=== PATIENT | male | born 1955 | race Caucasian/White ===

== ENCOUNTER 2017-12-12 14:35 | Emergency (ER) | payer OTHER, SELFPAY ==
[2017-12-12] VITALS (8 sets, daily range): BP systolic 151–165; BP diastolic 63–90; PULSE 60–70; RESP 11–20; TEMP 36.8; O2SAT 99–100; BMI 22.1
--- NOTE | 2017-12-12 14:51 | DI.RAD.S_ITS ---
PROCEDURE: XR CHEST 1V INDICATIONS: chest pain TECHNIQUE: One view of the chest was acquired. COMPARISON: [facility], CHEST 1 VIEW, 08/14/2016, 13:27. [facility], CHEST 1 VIEW, 11/13/2014, 15:13. FINDINGS: Surgical changes and devices: Sternotomy with mediastinal postoperative changes. Lungs and pleura: No pleural effusions or pneumothorax. Lungs are clear. Mediastinum: Mediastinal contours appear normal. Heart size is normal. Bones and chest wall: No suspicious bony lesions. Overlying soft tissues appear unremarkable. IMPRESSION: No radiographic evidence of acute cardiopulmonary pathology. Dictated by: Josep Diaz M.D. on 12/12/2017 at 15:23 Approved by: Josep Diaz M.D. on 12/12/2017 at 15:24
--- NOTE | 2017-12-12 14:59 | ED.CHESTPAIN ---
HPI - Chest Pain General Chief Complaint: Chest Pain Stated Complaint: CHEST PAIN/LOW BP 81/37 Time Seen by Provider: 12/12/17 14:38 Source: patient and family Mode of arrival: ambulatory Limitations: no limitations History of Present Illness HPI narrative: Patient presents to the emergency department today with a chief complaint of left-sided chest pressure that started while working in the [place]. It was about 30 min prior to his arrival in radiated to his right chest. He admits to associated symptoms such as dizziness, weakness and lightheadedness as well as nausea and shortness of breath. He had already taken a beta-madhuri and aspirin today and during this episode took nitroglycerin and then noted low blood pressures. By his arrival he is pain free. He had been complaining of worsening exercise fatigue over the past few weeks to months and had an outpatient stress test and echocardiogram which were concerning and patient is scheduled for an outpatient heart catheterization at [facility] on Thursday. MD complaint: chest pain Onset (ago): minute(s) Duration: constant Onset: during exertion Pain location: left chest Severity: mild Severity scale (1-10): 5 Quality: aching and heaviness Pain radiation: RUE Relieving factors: nitroglycerin and rest Exacerbating factors: exertion Associated symptoms: nausea, diaphoresis and dyspnea Treatments prior to arrival chest pain: aspirin and nitroglycerin Related Data Home Medications Medication Instructions Recorded Confirmed insulin lispro [Humalog U-100 1 unit CONTINUOUS IV INFUSION CONT 12/12/17 12/12/17 Insulin] levothyroxine 137 mcg PO DAILY 12/12/17 12/12/17 lisinopril 5 mg PO BID 12/12/17 12/12/17 magnesium chloride 64 mg PO QDAY 12/12/17 12/12/17 mycophenolate sodium 180 mg PO BID 12/12/17 12/12/17 nitroglycerin [Nitrostat] 0.4 mg SUBLINGUAL PRN PRN 12/12/17 12/12/17 prednisone 5 mg PO DAILY 12/12/17 12/12/17 rosuvastatin 5 mg PO DAILY 12/12/17 12/12/17 tacrolimus 2 mg PO Q12H 12/12/17 12/12/17 Allergies Allergy/AdvReac Type Severity Reaction Status Date / Time Rhvovrt-Ppm-Gyj Reductase Allergy Intermediate Verified 12/12/17 14:42 Inhibitor [ADHTJDO-BNP-ITV REDUCTASE INHIBITOR] Review of Systems Review of Systems All systems reviewed & are unremarkable except as noted in HPI and below Constitutional Denies chills, Denies fatigue, Denies fever(s), Denies lethargy and Denies weakness Eyes Denies change in vision, Denies eye discharge, Denies irritation and Denies loss of vision ENT Ears, Nose, Mouth, and Throat: Denies change in voice, Denies neck pain and Denies sore throat Cardiovascular Reports chest pain, Reports chest pain with activity, Reports diaphoresis, Reports lightheadedness and Reports dyspnea Respiratory Reports dyspnea Gastrointestinal Gastrointestinal: Denies abdominal pain, Denies change in bowel habits, Denies diarrhea, Reports nausea and Denies vomiting Genitourinary Denies hematuria, Denies flank pain, Denies urinary incontinence and Denies urinary urgency Musculoskeletal Denies neck pain Integumentary/Breasts Denies pruritus, Denies erythema, Denies rash and Denies wounds Neurologic Denies loss of vision and Denies weakness Endocrine Denies fatigue and Denies flushing Hematologic/Lymphatic Denies easy bruising PFSH Medical History Acquired immunocompromised state (Chronic) Aortic stenosis (Chronic) Diabetes (Chronic) HTN (hypertension) (Chronic) Hyperlipidemia (Chronic) Hypothyroid (Chronic) Surgical History Renal transplant recipient (Chronic) Social History Smoking Status: Never smoker Exam Narrative Exam Narrative: Pleasant 62-year-old male in no obvious distress. Resting comfortably Const General: cooperative and well developed Nutritional Appearance: well nourished Orientation: alert, awake, oriented x3 and not confused [facility] Head: normocephalic and atraumatic Ears: external ears normal and TM's normal bilaterally Nose: external nose normal and No nasal discharge Face and sinus: sinuses nontender, face symmetric, no sinus tenderness and No dry mucous membranes Mouth: oral mucosae normal and moist mucous membranes Teeth and gingiva: dentition normal Throat: tonsils normal and uvula midline Eyes General: appearance normal, both eyes and all related structures Eyelids: eyelids normal Conjunctivae: conjunctivae normal Sclera: sclerae normal Pupils: PERRL EOM: EOM intact bilaterally Chest Chest: normal inspection of the chest Resp Effort & Inspection: normal respiratory effort, able to speak in complete sentences, no respiratory distress and no use of accessory muscles Auscultation: clear to auscultation bilaterally, no rales, no rhonchi and no wheezes Cardio Rate: regular rate Rhythm: regular rhythm Heart Sounds: no click, no gallops, no murmurs and no rubs Pulses: normal peripheral pulses GI Inspection: non-distended Palpation: soft, no hepatosplenomegaly, No guarding, No pulsatile mass and No tender Auscultation: normal bowel sounds Back/Spine/Pelvis Back: No CVA tenderness Cervical Spine: cervical ROM normal and No pain with cervical ROM Thoracic/Lumbar Spine: thoracic and lumbar spine normal to inspection Neuro General: alert, awake and oriented x3 Cranial Nerves: PERRL and EOM intact bilaterally Cognition: normal cognition Speech: speech normal Gait: normal gait Extrem General: full ROM, no clubbing, cyanosis or edema, no pedal edema and no calf tenderness MDM - Chest Pain Differential Diagnosis Likely stable angina, unstable angina pectoris, atypical chest pain, costochondritis and chest pain Medical Records Data Attestation: I reviewed the patient's medical records. Lab Data Attestation: I reviewed the patient's lab results. Result diagrams: 12/12/17 14:55 12/12/17 14:55 Lab Results 12/12/17 12/12/17 12/12/17 Range/Units 14:55 14:55 14:55 WBC 7.5 (4.5-11.0) X10^3/uL RBC 3.92 L (4.5-5.9) X10^6/uL Hgb 12.7 L (13.5-17.5) g/dL Hct 36.4 L (41-53) % MCV 93.1 (80-100) fL MCH 32.5 (26-34) PG MCHC 34.9 (30-36) % RDW 13.4 (11.6-14.8) % Plt Count 165 (150-400) X10^3/uL Neut % (Auto) 69.0 (50-75) % Lymph % (Auto) 23.9 L (25-40) % [place] % (Auto) 5.7 (3-14) % Eos % (Auto) 0.5 L (2-4) % Baso % (Auto) 0.9 (0-2) % Neut # (Auto) 5200 (3154-3347) /uL PT 11.0 (10.1-12.7) SECONDS INR 1.0 (0.9-1.3) APTT 33 (26.4-36.2) SECONDS Sodium 134 L (137-145) mmol/L Potassium 6.0 H (3.4-5.1) mmol/L Chloride 102.0 (98-107) mmol/L Carbon Dioxide 19.0 L (22-32) mmol/L BUN 38.0 H (9-20) mg/dL Creatinine 1.50 H (0.66-1.25) mg/dL Estimated GFR 47.6 L (>60) mL/min BUN/Creatinine Ratio 25.3 H (6-22) Glucose 334 H (80-110) mg/dL Calcium 9.4 (8.4-10.2) mg/dL Total Bilirubin 1.0 (0.2-1.3) mg/dL AST 24 (17-59) IU/L ALT 29 (21-72) IU/L Alkaline Phosphatase 49 (38-126) U/L Total Creatine Kinase 150 (55-170) U/L CK-MB (CK-2) 1.02 (<2.37) ng/mL CK-MB (CK-2) Rel Index 0.7 L (1.5-5.0) % Troponin I 0.012 (0.01-0.034) ng/mL Total Protein 7.3 (6.3-8.2) g/dL Albumin 4.2 (3.5-5.0) g/dL Globulin 3.1 (1.7-4.1) g/dL Albumin/Globulin Ratio 1.4 (1.0-2.8) Lipase 14 L (23-300) U/L Imaging Data Chest x-ray: Attestation: I personally reviewed and interpreted this imaging study as follows: My impression: [facility] Radiologist's impression: PROCEDURE: XR CHEST 1V INDICATIONS: chest pain TECHNIQUE: One view of the chest was acquired. COMPARISON: [facility], CHEST 1 VIEW, 08/14/2016, 13:27. [facility], CHEST 1 VIEW, 11/13/2014, 15:13. FINDINGS: Surgical changes and devices: Sternotomy with mediastinal postoperative changes. Lungs and pleura: No pleural effusions or pneumothorax. Lungs are clear. Mediastinum: Mediastinal contours appear normal. Heart size is normal. Bones and chest wall: No suspicious bony lesions. Overlying soft tissues appear unremarkable. IMPRESSION: No radiographic evidence of acute cardiopulmonary pathology. Dictated by: Josep Diaz M.D. on 12/12/2017 at 15:23 Approved by: Josep Diaz M.D. on 12/12/2017 at 15:24 ECG Data Attestation: I personally reviewed and interpreted this ECG as follows: Prior ECG tracings: available for review Interpretation: NSR, rate 68. No ST changes. large T waves in septal leads. Unchanged from prior on 08/14/16 Course Orders Ordered: ED Orders 12/12/17 14:51 XR chest 1V Stat EKG-12 Lead Stat 12/12/17 14:55 Complete Blood Count AUTO DIFF Stat Comprehensive Metabolic Panel Stat Lipase Stat Partial Thromboplastin Time Stat Prothrombin Time INR Stat Troponin with CK Cardiac Panel Stat Reevaluation(s) Reevaluation #1: Patient continues to be pain-free Time: 15:44 Consultations Consultation #1: Cardiology at [facility] has been paged Time: 15:44 Last Vital Signs Temp 98.2 F 12/12/17 14:37 Pulse 60 12/12/17 18:48 Resp 16 12/12/17 18:48 BP 162/63 H 12/12/17 18:48 Pulse Ox 99 12/12/17 18:48 Discharge Plan Departure Patient Disposition: [facility] Clinical Impression: Chest pain Prescriptions: No Action nitroglycerin [Nitrostat] 0.4 MG tablet, sublingual 0.4 mg Sublingual PRN PRN (Reason: Chest Pain) RF: 0 lisinopril 5 mg Tablet 5 mg PO BID RF: 0 levothyroxine 137 mcg Capsule 137 mcg PO DAILY RF: 0 magnesium chloride 70 mg tablet,delayed release (DR/EC) 64 mg PO QDAY RF: 0 prednisone 5 mg Tablet 5 mg PO DAILY RF: 0 insulin lispro [Humalog U-100 Insulin] 100 unit/mL solution 1 unit Continuous IV Infusion CONT RF: 0 tacrolimus 1 mg Capsule 2 mg PO Q12H RF: 0 rosuvastatin 5 mg Tablet 5 mg PO DAILY RF: 0 mycophenolate sodium 180 mg Tablet,Delayed Release (Dr/Ec) 180 mg PO BID RF: 0
[2017-12-12 15:10] LABS: Add Manual Diff / Slide Review NO; Basophils Percent Auto 0.9 % (0-2); Eosinophils Percent Auto 0.5 % (2-4); Hematocrit 36.4 % (41-53); Hemoglobin 12.7 g/dL (13.5-17.5); Lymphocytes Percent Auto 23.9 % (25-40); Mean Corpuscular HGB Conc 34.9 % (30-36); Mean Corpuscular Hemoglobin 32.5 PG (26-34); Mean Corpuscular Volume 93.1 fL (80-100); Monocytes Percent Auto 5.7 % (3-14); Neutrophils Absolute Auto 5200 /uL (3000-5900); Platelet Count 165 X10^3/uL (150-400); Red Blood Cell Count 3.92 X10^6/uL (4.5-5.9); Red Cell Distribution Width 13.4 % (11.6-14.8); White Blood Cell Count 7.5 X10^3/uL (4.5-11.0)
[2017-12-12 15:19] LABS: PTT Partial Thromboplastin Tim 33 SECONDS (26.4-36.2)
[2017-12-12 15:21] LABS: Alanine Aminotransferase 29 IU/L (21-72); Albumin 4.2 g/dL (3.5-5.0); Albumin Globulin Ratio 1.4 (1.0-2.8); Alkaline Phosphatase 49 U/L (38-126); Aspartate Aminotransferase 24 IU/L (17-59); BUN Creatinine Ratio 25.3 (6-22); Calcium 9.4 mg/dL (8.4-10.2); Creatine Kinase 150 U/L (55-170); Estimated Glomerular Filt Rate 47.6 mL/min (>60); Globulin 3.1 g/dL (1.7-4.1); Glucose 334 mg/dL (80-110); HEMOLYSIS 37 (0-50); Lipase 14 U/L (23-300); Sodium 134 mmol/L (137-145); Total Protein 7.3 g/dL (6.3-8.2)
--- NOTE | 2017-12-12 15:21 | ED_ITS ---
HPI - Chest Pain General Chief Complaint: Chest Pain Stated Complaint: CHEST PAIN/LOW BP 81/37 Time Seen by Provider: 12/12/17 14:38 Source: patient and family Mode of arrival: ambulatory Limitations: no limitations History of Present Illness HPI narrative: Patient presents to the emergency department today with a chief complaint of left-sided chest pressure that started while working in the [place]. It was about 30 min prior to his arrival in radiated to his right chest. He admits to associated symptoms such as dizziness, weakness and lightheadedness as well as nausea and shortness of breath. He had already taken a beta-madhuri and aspirin today and during this episode took nitroglycerin and then noted low blood pressures. By his arrival he is pain free. He had been complaining of worsening exercise fatigue over the past few weeks to months and had an outpatient stress test and echocardiogram which were concerning and patient is scheduled for an outpatient heart catheterization at [facility] on Thursday. MD complaint: chest pain Onset (ago): minute(s) Duration: constant Onset: during exertion Pain location: left chest Severity: mild Severity scale (1-10): 5 Quality: aching and heaviness Pain radiation: RUE Relieving factors: nitroglycerin and rest Exacerbating factors: exertion Associated symptoms: nausea, diaphoresis and dyspnea Treatments prior to arrival chest pain: aspirin and nitroglycerin Related Data Home Medications Medication Instructions Recorded Confirmed insulin lispro [Humalog U-100 1 unit CONTINUOUS IV INFUSION CONT 12/12/17 Insulin] levothyroxine 137 mcg PO DAILY 12/12/17 12/12/17 lisinopril 5 mg PO BID 12/12/17 12/12/17 magnesium chloride 64 mg PO QDAY 12/12/17 12/12/17 mycophenolate sodium 180 mg PO BID 12/12/17 12/12/17 nitroglycerin [Nitrostat] 0.4 mg SUBLINGUAL PRN PRN 12/12/17 12/12/17 prednisone 5 mg PO DAILY 12/12/17 12/12/17 rosuvastatin 5 mg PO DAILY 12/12/17 12/12/17 tacrolimus 2 mg PO Q12H 12/12/17 12/12/17 Allergies Allergy/AdvReac Type Severity Reaction Status Date / Time Upeonky-Gvr-Big Reductase Allergy Intermediate Verified 12/12/17 14:42 Inhibitor [STZGRNL-LTP-DRE REDUCTASE INHIBITOR] Review of Systems Review of Systems All systems reviewed & are unremarkable except as noted in HPI and below Constitutional Denies chills, Denies fatigue, Denies fever(s), Denies lethargy and Denies weakness Eyes Denies change in vision, Denies eye discharge, Denies irritation and Denies loss of vision ENT Ears, Nose, Mouth, and Throat: Denies change in voice, Denies neck pain and Denies sore throat Cardiovascular Reports chest pain, Reports chest pain with activity, Reports diaphoresis, Reports lightheadedness and Reports dyspnea Respiratory Reports dyspnea Gastrointestinal Gastrointestinal: Denies abdominal pain, Denies change in bowel habits, Denies diarrhea, Reports nausea and Denies vomiting Genitourinary Denies hematuria, Denies flank pain, Denies urinary incontinence and Denies urinary urgency Musculoskeletal Denies neck pain Integumentary/Breasts Denies pruritus, Denies erythema, Denies rash and Denies wounds Neurologic Denies loss of vision and Denies weakness Endocrine Denies fatigue and Denies flushing Hematologic/Lymphatic Denies easy bruising PFSH Medical History Acquired immunocompromised state (Chronic) Aortic stenosis (Chronic) Diabetes (Chronic) HTN (hypertension) (Chronic) Hyperlipidemia (Chronic) Hypothyroid (Chronic) Surgical History Renal transplant recipient (Chronic) Social History Smoking Status: Never smoker Exam Narrative Exam Narrative: Pleasant 62-year-old male in no obvious distress. Resting comfortably Const General: cooperative and well developed Nutritional Appearance: well nourished Orientation: alert, awake, oriented x3 and not confused [facility] Head: normocephalic and atraumatic Ears: external ears normal and TM's normal bilaterally Nose: external nose normal and No nasal discharge Face and sinus: sinuses nontender, face symmetric, no sinus tenderness and No dry mucous membranes Mouth: oral mucosae normal and moist mucous membranes Teeth and gingiva: dentition normal Throat: tonsils normal and uvula midline Eyes General: appearance normal, both eyes and all related structures Eyelids: eyelids normal Conjunctivae: conjunctivae normal Sclera: sclerae normal Pupils: PERRL EOM: EOM intact bilaterally Chest Chest: normal inspection of the chest Resp Effort & Inspection: normal respiratory effort, able to speak in complete sentences, no respiratory distress and no use of accessory muscles Auscultation: clear to auscultation bilaterally, no rales, no rhonchi and no wheezes Cardio Rate: regular rate Rhythm: regular rhythm Heart Sounds: no click, no gallops, no murmurs and no rubs Pulses: normal peripheral pulses GI Inspection: non-distended Palpation: soft, no hepatosplenomegaly, No guarding, No pulsatile mass and No tender Auscultation: normal bowel sounds Back/Spine/Pelvis Back: No CVA tenderness Cervical Spine: cervical ROM normal and No pain with cervical ROM Thoracic/Lumbar Spine: thoracic and lumbar spine normal to inspection Neuro General: alert, awake and oriented x3 Cranial Nerves: PERRL and EOM intact bilaterally Cognition: normal cognition Speech: speech normal Gait: normal gait Extrem General: full ROM, no clubbing, cyanosis or edema, no pedal edema and no calf tenderness MDM - Chest Pain Differential Diagnosis Likely stable angina, unstable angina pectoris, atypical chest pain, costochondritis and chest pain Medical Records Data Attestation: I reviewed the patient's medical records. Lab Data Attestation: I reviewed the patient's lab results. Result diagrams: 12/12/17 14:55 12/12/17 14:55 Lab Results 12/12/17 12/12/17 12/12/17 Range/Units 14:55 14:55 14:55 WBC 7.5 (4.5-11.0) X10^3/uL RBC 3.92 L (4.5-5.9) X10^6/uL Hgb 12.7 L (13.5-17.5) g/dL Hct 36.4 L (41-53) % MCV 93.1 (80-100) fL MCH 32.5 (26-34) PG MCHC 34.9 (30-36) % RDW 13.4 (11.6-14.8) % Plt Count 165 (150-400) X10^3/uL Neut % (Auto) 69.0 (50-75) % Lymph % (Auto) 23.9 L (25-40) % [place] % (Auto) 5.7 (3-14) % Eos % (Auto) 0.5 L (2-4) % Baso % (Auto) 0.9 (0-2) % Neut # (Auto) 5200 (3647-0759) /uL PT 11.0 (10.1-12.7) SECONDS INR 1.0 (0.9-1.3) APTT 33 (26.4-36.2) SECONDS Sodium 134 L (137-145) mmol/L Potassium 6.0 H (3.4-5.1) mmol/L Chloride 102.0 (98-107) mmol/L Carbon Dioxide 19.0 L (22-32) mmol/L BUN 38.0 H (9-20) mg/dL Creatinine 1.50 H (0.66-1.25) mg/dL Estimated GFR 47.6 L (>60) mL/min BUN/Creatinine Ratio 25.3 H (6-22) Glucose 334 H (80-110) mg/dL Calcium 9.4 (8.4-10.2) mg/dL Total Bilirubin 1.0 (0.2-1.3) mg/dL AST 24 (17-59) IU/L ALT 29 (21-72) IU/L Alkaline Phosphatase 49 (38-126) U/L Total Creatine Kinase 150 (55-170) U/L CK-MB (CK-2) 1.02 (<2.37) ng/mL CK-MB (CK-2) Rel Index 0.7 L (1.5-5.0) % Troponin I 0.012 (0.01-0.034) ng/mL Total Protein 7.3 (6.3-8.2) g/dL Albumin 4.2 (3.5-5.0) g/dL Globulin 3.1 (1.7-4.1) g/dL Albumin/Globulin Ratio 1.4 (1.0-2.8) Lipase 14 L (23-300) U/L Imaging Data Chest x-ray: Attestation: I personally reviewed and interpreted this imaging study as follows: My impression: [facility] Radiologist's impression: PROCEDURE: XR CHEST 1V INDICATIONS: chest pain TECHNIQUE: One view of the chest was acquired. COMPARISON: [facility], CHEST 1 VIEW, 08/14/2016, 13:27. [facility], CHEST 1 VIEW, 11/13/2014, 15:13. FINDINGS: Surgical changes and devices: Sternotomy with mediastinal postoperative changes. Lungs and pleura: No pleural effusions or pneumothorax. Lungs are clear. Mediastinum: Mediastinal contours appear normal. Heart size is normal. Bones and chest wall: No suspicious bony lesions. Overlying soft tissues appear unremarkable. IMPRESSION: No radiographic evidence of acute cardiopulmonary pathology. Dictated by: Josep Diaz M.D. on 12/12/2017 at 15:23 Approved by: Josep Diaz M.D. on 12/12/2017 at 15:24 ECG Data Attestation: I personally reviewed and interpreted this ECG as follows: Prior ECG tracings: available for review Interpretation: NSR, rate 68. No ST changes. large T waves in septal leads. Unchanged from prior on 08/14/16 Course Orders Ordered: ED Orders 12/12/17 14:51 XR chest 1V Stat EKG-12 Lead Stat 12/12/17 14:55 Complete Blood Count AUTO DIFF Stat Comprehensive Metabolic Panel Stat Lipase Stat Partial Thromboplastin Time Stat Prothrombin Time INR Stat Troponin with CK Cardiac Panel Stat Reevaluation(s) Reevaluation #1: Patient continues to be pain-free Time: 15:44 Consultations Consultation #1: Cardiology at [facility] has been paged Time: 15:44 Last Vital Signs Temp 98.2 F 12/12/17 14:37 Pulse 60 12/12/17 18:48 Resp 16 12/12/17 18:48 BP 162/63 H 12/12/17 18:48 Pulse Ox 99 12/12/17 18:48 Discharge Plan Departure Patient Disposition: [facility] Clinical Impression: Chest pain Prescriptions: No Action nitroglycerin [Nitrostat] 0.4 MG tablet, sublingual 0.4 mg Sublingual PRN PRN (Reason: Chest Pain) RF: 0 lisinopril 5 mg Tablet 5 mg PO BID RF: 0 levothyroxine 137 mcg Capsule 137 mcg PO DAILY RF: 0 magnesium chloride 70 mg tablet,delayed release (DR/EC) 64 mg PO QDAY RF: 0 prednisone 5 mg Tablet 5 mg PO DAILY RF: 0 insulin lispro [Humalog U-100 Insulin] 100 unit/mL solution 1 unit Continuous IV Infusion CONT RF: 0 tacrolimus 1 mg Capsule 2 mg PO Q12H RF: 0 rosuvastatin 5 mg Tablet 5 mg PO DAILY RF: 0 mycophenolate sodium 180 mg Tablet,Delayed Release (Dr/Ec) 180 mg PO BID RF: 0
[2017-12-12 15:32] LABS: Troponin I 0.012 ng/mL (0.01-0.034)
[2017-12-12 15:36] LABS: CKMB % Relative Index 0.7 % (1.5-5.0); Creatine Kinase MB 1.02 ng/mL (<2.37)
== END 2017-12-12 20:05 | disposition short-term general hospital (02) ==
PROVIDERS: Emergency Provider Emergency Medicine
DX: R10.9 Unspecified abdominal pain (principal)
CPT/HCPCS: 71045; 80053; 82550; 82553; 83690; 84484; 85025; 85610; 85730; 93005; 93041; 99285

== ENCOUNTER → 2018-01-02 08:25 | Outpatient (CLI) | payer OTHER, SELFPAY ==
[2018-01-02 09:50] LABS: Blood Urea Nitrogen 24 mg/dL (9-20); Calcium 9.4 mg/dL (8.4-10.2); Carbon Dioxide 22 mmol/L (22-32); Chloride 105 mmol/L (98-107); Estimated Glomerular Filt Rate > 60.0 mL/min (>60); Glucose 132 mg/dL (80-110); HEMOLYSIS < 15 (0-50); Sodium 138 mmol/L (137-145)
[2018-01-02 09:52] LABS: Potassium 5.9 mmol/L (3.4-5.1)
== END ==
PROVIDERS: Visit Provider Internal Medicine Interventional Cardiology
DX: I35.0 Nonrheumatic aortic (valve) stenosis (principal); Z94.0 Kidney transplant status
CPT/HCPCS: 36415; 80048

== ENCOUNTER 2018-01-31 15:13 | Emergency (ER) | payer OTHER, SELFPAY ==
[2018-01-31 15:15] VITALS: BP 207/103; PULSE 77; RESP 20; TEMP 36.9; O2SAT 100; BMI 21.7
--- NOTE | 2018-01-31 15:23 | ED_ITS ---
HPI - Neuro Symptoms/Deficit General Chief Complaint: Neuro Symptoms/Deficit Stated Complaint: LEFT SIDE NUMB Time Seen by Provider: 01/31/18 15:22 Source: patient Mode of arrival: ambulatory Limitations: no limitations History of Present Illness HPI Narrative: patient is a 62-year-old insulin-dependent diabetic male who is also a renal transplant patient not currently on dialysis 2 weeks status post endovascular aortic valve replacement on Plavix here for evaluation of approximately 30 min of left arm numbness, left leg numbness, numbness on the left side of his face and slurring his words. Patient states that it was a sudden onset of left arm numbness that then moved to his left leg and then he noticed that the left side of his face was drooping as well. Patient took aspirin prior to arrival here in the emergency department. Denies any trauma. Denies any other symptoms at the time. Patient was a code stroke in the emergency department. Upon my evaluation he states that his symptoms have improved tremendously however was still having numbness in his left arm and leg. Related Data Home Medications Medication Instructions Recorded Confirmed insulin lispro [Humalog U-100 1 unit CONTINUOUS IV INFUSION CONT 12/12/17 Insulin] levothyroxine 137 mcg PO DAILY 12/12/17 12/12/17 lisinopril 5 mg PO BID 12/12/17 12/12/17 magnesium chloride 64 mg PO QDAY 12/12/17 12/12/17 mycophenolate sodium 180 mg PO BID 12/12/17 12/12/17 nitroglycerin [Nitrostat] 0.4 mg SUBLINGUAL PRN PRN 12/12/17 12/12/17 prednisone 5 mg PO DAILY 12/12/17 12/12/17 rosuvastatin 5 mg PO DAILY 12/12/17 12/12/17 tacrolimus 2 mg PO Q12H 12/12/17 12/12/17 Allergies Allergy/AdvReac Type Severity Reaction Status Date / Time [id number] Reductase Allergy Intermediate Verified 12/12/17 14:42 Inhibitor [[id number] REDUCTASE INHIBITOR] olmesartan Allergy Verified 01/31/18 15:27 Review of Systems Constitutional Denies chills, Denies fatigue, Denies fever(s), Denies headache(s), Denies malaise and Denies weakness Eyes Denies blurry vision, Denies diplopia, Denies irritation, Denies itchy eyes, Denies loss of vision and Denies photophobia ENT Ears, Nose, Mouth, and Throat: Denies change in voice, Denies dysphagia, Denies vertigo, Denies dizziness, Denies facial pain, Denies headache(s), Denies hoarseness, Denies disequilibrium, Denies sinus pressure and Denies sore throat Comments: slurring his words Tingling left side of his face Cardiovascular Denies chest pain, Denies diaphoresis, Denies syncope, Denies pedal edema, Denies edema, Denies palpitations and Denies dyspnea Respiratory Denies cough and Denies dyspnea Gastrointestinal Gastrointestinal: Denies abdominal pain, Denies melena, Denies constipation, Denies dysphagia, Denies diarrhea, Denies nausea and Denies vomiting Genitourinary Denies dysuria and Denies flank pain Musculoskeletal Denies abnormal gait, Denies back pain, Denies myalgias, Denies deformity, Denies arthralgias and Reports numbness ( Left arm and left leg) Neurologic Denies abnormal movements, Reports abnormal speech ( slurring his words), Denies abnormal gait, Denies behavioral changes, Denies vertigo, Denies dizziness, Denies syncope, Denies headache(s), Denies focal weakness, Denies loss of vision, Reports numbness ( Left arm and left leg), Denies radicular pain, Denies convulsions, Reports sensory deficit ( numbness left arm left leg) , Denies disequilibrium and Denies weakness Psychiatric Denies behavioral changes Endocrine Denies fatigue and Denies palpitations Hematologic/Lymphatic Reports easy bleeding ( on Plavix) and Denies easy bruising Allergic/Immunologic Denies itchy eyes [facility] Medical History Bypass graft stenosis (Acute) COPD (chronic obstructive pulmonary disease) (Acute) Kidney failure (Acute) Acquired immunocompromised state (Chronic) Aortic stenosis (Chronic) Diabetes (Chronic) HTN (hypertension) (Chronic) Hyperlipidemia (Chronic) Hypothyroid (Chronic) Surgical History Heart valve replaced (Acute) Renal transplant recipient (Chronic) Social History Smoking Status: Never smoker Exam Initial Vital Signs Initial Vital Signs: Vital Signs Temperature 98.4 F 01/31/18 15:15 Pulse Rate 77 01/31/18 15:15 Respiratory Rate 20 01/31/18 15:15 Blood Pressure 207/103 H 01/31/18 15:15 Pulse Oximetry 100 01/31/18 15:15 Const General: cooperative, healthy appearing, comfortable, well developed, well groomed and No acute distress Nutritional Appearance: average body habitus Orientation: alert, awake and oriented x3 [facility] Head: normal to inspection, normocephalic and atraumatic Ears: hearing grossly normal bilaterally Nose: external nose normal Face and sinus: normal facial exam, sinuses nontender and face symmetric Mouth: oral mucosae normal Eyes Pupils: PERRL EOM: EOM not intact bilaterally ( patient unable to look nasally with the right eye. Patient states that this is not new for him.) and No nystagmus Neck Neck: normal visual inspection Resp Effort & Inspection: normal respiratory effort Auscultation: clear to auscultation bilaterally Cardio Rate: regular rate Rhythm: regular rhythm Heart Sounds: murmur systolic III/ GI Inspection: normal to inspection, no edema and non-distended Palpation: soft, No firm and No tender Back/Spine/Pelvis Back: No back tenderness and No CVA tenderness Skin General: no rashes or lesions noted Lesions: no lesions Rashes: no rashes Wounds: no wounds Neuro General: alert, awake, oriented x3 and moves all extremities Cranial Nerves: CN's II-XI intact bilaterally ( Except for inability to looked to the left the right eye however patient states that this is not new for him), PERRL and No nystagmus Cognition: normal cognition Speech: speech normal Gait: normal gait Motor: muscle tone normal throughout Other: upon initial exam patient reported no sensory deficits the left side of his face and left upper lower extremity. When asked if he was still having symptoms he did state that he was not on his left side. Upon re-evaluation patient again reported no sensory deficits to touch. He states that the numbness was around his left knee and his left upper arm. Extrem General: normal to inspection, capillary refill normal and normal exam except as noted Right lower extremity: no edema Left lower extremity: no edema Psych Appearance: grossly normal, well kempt and disheveled Scores NIH Stroke Scale Level of Conciousness: Alert, keenly responsive Ask month/age: Answers both questions correctly. Open/close eyes, close hand: Performs both tasks correctly Best gaze horizontal: Normal Visual price: No visual loss Facial palsy: Normal symetrical movement Left arm drift: No drift for full 10 sec Right arm drift: No drift for full 10 sec Left leg drift: No drift for full 10 sec Right leg drift: No drift for full 10 sec Limb ataxia: Absent Sensory on face/arms/legs: Mild to moderate sensory loss, can tell touch Best language: No aphasia, normal Dysarthria: Normal Extinction or inattention: No abnormality Total NIH Stroke scale score: 1 Course Orders Ordered: ED Orders 01/31/18 15:20 Complete Blood Count AUTO DIFF Stat Comprehensive Metabolic Panel Stat Lipase Stat Partial Thromboplastin Time Stat Prothrombin Time INR Stat Thyroid Stimulating Hormone Stat Troponin I Stat 01/31/18 15:25 CT head/brain wo con Stat EKG-12 Lead Stat Vital Signs - 8 hr 01/31/18 15:15 01/31/18 15:59 Temperature 98.4 F Pulse Rate 77 71 Respiratory Rate 20 21 Blood Pressure 207/103 H Blood Pressure [Right Arm] 163/86 H Pulse Oximetry 100 94 MDM - Neuro Symptoms/Deficit Lab Data Attestation: I reviewed the patient's lab results. Result diagrams: 01/31/18 15:20 01/31/18 15:20 Lab Results 01/31/18 01/31/18 01/31/18 Range/Units 15:20 15:20 15:20 WBC 6.7 (4.5-11.0) X10^3/uL RBC 3.69 L (4.5-5.9) X10^6/uL Hgb 11.9 L (13.5-17.5) g/dL Hct 34.8 L (41-53) % MCV 94.3 (80-100) fL MCH 32.4 (26-34) PG MCHC 34.4 (30-36) % RDW 13.5 (11.6-14.8) % Plt Count 179 (150-400) X10^3/uL Neut % (Auto) 55.6 (50-75) % Lymph % (Auto) 36.0 (25-40) % Amelia % (Auto) 6.7 (3-14) % Eos % (Auto) 0.6 L (2-4) % Baso % (Auto) 1.1 (0-2) % Neut # (Auto) 3700 (9689-7815) /uL PT 10.9 (10.1-12.7) SECONDS INR 1.0 (0.9-1.3) APTT 40 H D (26.4-36.2) SECONDS Sodium 139 (137-145) mmol/L Potassium 5.8 H (3.4-5.1) mmol/L Chloride 108 H (98-107) mmol/L Carbon Dioxide 20 L (22-32) mmol/L BUN 35 H (9-20) mg/dL Creatinine 1.80 H (0.66-1.25) mg/dL Estimated GFR 38.6 L (>60) mL/min BUN/Creatinine Ratio 19.4 (6-22) Glucose 90 (80-110) mg/dL Calcium 9.9 (8.4-10.2) mg/dL Total Bilirubin 0.8 (0.2-1.3) mg/dL AST 28 (17-59) IU/L ALT 29 (21-72) IU/L Alkaline Phosphatase 53 (38-126) U/L Troponin I 0.021 (0.01-0.034) ng/mL Total Protein 7.7 (6.3-8.2) g/dL Albumin 4.4 (3.5-5.0) g/dL Globulin 3.3 (1.7-4.1) g/dL Albumin/Globulin Ratio 1.3 (1.0-2.8) Lipase 17 L (23-300) U/L TSH (0.47-4.68) uIU/mL 01/31/18 Range/Units 15:20 WBC (4.5-11.0) X10^3/uL RBC (4.5-5.9) X10^6/uL Hgb (13.5-17.5) g/dL Hct (41-53) % MCV (80-100) fL MCH (26-34) PG MCHC (30-36) % RDW (11.6-14.8) % Plt Count (150-400) X10^3/uL Neut % (Auto) (50-75) % Lymph % (Auto) (25-40) % Amelia % (Auto) (3-14) % Eos % (Auto) (2-4) % Baso % (Auto) (0-2) % Neut # (Auto) (1785-3636) /uL PT (10.1-12.7) SECONDS INR (0.9-1.3) APTT (26.4-36.2) SECONDS Sodium (137-145) mmol/L Potassium (3.4-5.1) mmol/L Chloride (98-107) mmol/L Carbon Dioxide (22-32) mmol/L BUN (9-20) mg/dL Creatinine (0.66-1.25) mg/dL Estimated GFR (>60) mL/min BUN/Creatinine Ratio (6-22) Glucose (80-110) mg/dL Calcium (8.4-10.2) mg/dL Total Bilirubin (0.2-1.3) mg/dL AST (17-59) IU/L ALT (21-72) IU/L Alkaline Phosphatase (38-126) U/L Troponin I (0.01-0.034) ng/mL Total Protein (6.3-8.2) g/dL Albumin (3.5-5.0) g/dL Globulin (1.7-4.1) g/dL Albumin/Globulin Ratio (1.0-2.8) Lipase (23-300) U/L TSH 1.06 (0.47-4.68) uIU/mL Imaging Data CT scan - head: Radiologist's impression: PROCEDURE: CT HEAD/BRAIN WO CON INDICATIONS: Left-sided numbness TECHNIQUE: Noncontrast 4.5 mm thick angled axial sections acquired from the foramen magnum to the vertex, with coronal and sagittal reformats. For radiation dose reduction, the following was used: automated exposure control, adjustment of mA and/or kV according to patient size. COMPARISON: None. FINDINGS: Image quality: Excellent. CSF spaces: Basal cisterns are patent. No extra-axial fluid collections. The ventricles are symmetric in size and shape. Brain: No intracranial bleeds or masses. There is cerebral volume loss for age , with resultant ventricular and sulcal prominence. There are periventricular and deep white matter chronic small vessel ischemic changes. There is intracranial internal carotid artery and vertebral artery atherosclerosis. Skull and face: Calvarium and visualized facial bones appear intact, without suspicious lesions. Sinuses: Visualized sinuses and mastoids are clear. IMPRESSION: No acute intracranial disease process. Dictated by: Marie Silva MD, PhD on 01/31/2018 at 16:01 Approved by: Marie Silva MD, PhD on 01/31/2018 at 16:03 ECG Data Attestation: I personally reviewed and interpreted this ECG as follows: Prior ECG tracings: available for review Interpretation: EKG dated 01 January 2018 time 1531 hr sinus rhythm ventricular rate is 70 LVH QRS 117 milliseconds QTC 412 Milliseconds unchanged from EKG dated 12/12/2017 MDM Narrative Medical decision making narrative: patient's head CT shows no acute pathology. Patient did take an aspirin prior to arrival here in the emergency department. He is also on Plavix. Upon returning from the head CT patient reported that all of his symptoms had completely resolved. Secondary to the focal neuro deficits that is resolved and his recent aortic valve replacement his history and physical exam was consistent with a TIA. Given his other comorbidities of feel that admission to the hospital was warranted. He states that he has had carotid Dopplers just prior to his aortic valve replacement does not remember any MRIs of his brain. Patient's medical care is given at [facility]. I feel given his chronic medical conditions and the fact that all of his care is given at this facility that transfer would be warranted. Discussed the case with Dr. Page with Internal Medicine. who accepts the patient in transfer. Patient is stable for transport. Discussed transfer with the patient and his who is at bedside and they expressed understanding and agreement. Discharge Plan Departure Patient Disposition: [facility] Clinical Impression: TIA (transient ischemic attack), Diabetes mellitus, Renal transplant recipient , H/O aortic valve replacement Prescriptions: No Action nitroglycerin [Nitrostat] 0.4 MG tablet, sublingual 0.4 mg Sublingual PRN PRN (Reason: Chest Pain) RF: 0 lisinopril 5 mg Tablet 5 mg PO BID RF: 0 levothyroxine 137 mcg Capsule 137 mcg PO DAILY RF: 0 magnesium chloride 70 mg tablet,delayed release (DR/EC) 64 mg PO QDAY RF: 0 prednisone 5 mg Tablet 5 mg PO DAILY RF: 0 insulin lispro [Humalog U-100 Insulin] 100 unit/mL solution 1 unit Continuous IV Infusion CONT RF: 0 tacrolimus 1 mg Capsule 2 mg PO Q12H RF: 0 rosuvastatin 5 mg Tablet 5 mg PO DAILY RF: 0 mycophenolate sodium 180 mg Tablet,Delayed Release (Dr/Ec) 180 mg PO BID RF: 0
[2018-01-31 15:33] LABS: Add Manual Diff / Slide Review NO; Basophils Percent Auto 1.1 % (0-2); Eosinophils Percent Auto 0.6 % (2-4); Hematocrit 34.8 % (41-53); Hemoglobin 11.9 g/dL (13.5-17.5); Mean Corpuscular HGB Conc 34.4 % (30-36); Mean Corpuscular Hemoglobin 32.4 PG (26-34); Mean Corpuscular Volume 94.3 fL (80-100); Monocytes Percent Auto 6.7 % (3-14); Neutrophils Absolute Auto 3700 /uL (3000-5900); Neutrophils Percent Auto 55.6 % (50-75); Platelet Count 179 X10^3/uL (150-400); Red Blood Cell Count 3.69 X10^6/uL (4.5-5.9); Red Cell Distribution Width 13.5 % (11.6-14.8); White Blood Cell Count 6.7 X10^3/uL (4.5-11.0)
--- NOTE | 2018-01-31 15:35 | PC.NURSE ---
Acute onset lt side numbness, began in lt arm, moved up to lt side face, reports greatly improved at time of exam, negative FAST, NIH 0 at 1535, MD Beth at bedside at time of triage. Denies nausea/vomiting/fever/diarrhea/cough/trauma or other sx, reports took 324 mg aspirin [employer], recently started Plavix r/t aortic valve replacement 01/12/18. at bedside, NSR on monitor
[2018-01-31 15:39] LABS: Prothrombin Time 10.9 SECONDS (10.1-12.7)
[2018-01-31 15:42] LABS: PTT Partial Thromboplastin Tim 40 SECONDS (26.4-36.2)
[2018-01-31 15:43] LABS: Alanine Aminotransferase 29 IU/L (21-72); Albumin 4.4 g/dL (3.5-5.0); Albumin Globulin Ratio 1.3 (1.0-2.8); Alkaline Phosphatase 53 U/L (38-126); Aspartate Aminotransferase 28 IU/L (17-59); BUN Creatinine Ratio 19.4 (6-22); Bilirubin Total 0.8 mg/dL (0.2-1.3); Blood Urea Nitrogen 35 mg/dL (9-20); Calcium 9.9 mg/dL (8.4-10.2); Carbon Dioxide 20 mmol/L (22-32); Chloride 108 mmol/L (98-107); Estimated Glomerular Filt Rate 38.6 mL/min (>60); Globulin 3.3 g/dL (1.7-4.1); Glucose 90 mg/dL (80-110); HEMOLYSIS 29 (0-50); Lipase 17 U/L (23-300); Sodium 139 mmol/L (137-145); Total Protein 7.7 g/dL (6.3-8.2)
[2018-01-31 15:51] LABS: Potassium 5.8 mmol/L (3.4-5.1)
[2018-01-31 15:55] LABS: Troponin I 0.021 ng/mL (0.01-0.034)
[2018-01-31 15:59] VITALS: BP 163/86; PULSE 71; RESP 21; O2SAT 94
[2018-01-31 16:14] LABS: Thyroid Stimulating Hormone 1.06 uIU/mL (0.47-4.68)
[2018-01-31 16:35] VITALS: BP 177/96; PULSE 70; RESP 16; O2SAT 99
--- NOTE | 2018-01-31 16:56 | PC.NURSE ---
No changes to exam, pt remains asymptomatic
[2018-01-31 17:01] VITALS: BP 183/92; PULSE 70; RESP 14; O2SAT 100
[2018-01-31 17:45] VITALS: BP 173/86; PULSE 68; RESP 17; O2SAT 99
[2018-01-31 18:23] VITALS: BP 182/88; PULSE 69; RESP 18; TEMP 36.6; O2SAT 100
== END 2018-01-31 18:42 | disposition short-term general hospital (02) ==
PROVIDERS: Emergency Provider Emergency Medicine
DX: G45.9 Transient cerebral ischemic attack, unspecified (principal); E11.9 Type 2 diabetes mellitus without complications
CPT/HCPCS: 36591; 70450; 80053; 83690; 84443; 84484; 85025; 85610; 85730; 93005; 99283; 99285; 99291

== ENCOUNTER 2018-02-03 12:59 | Emergency (ER) | payer OTHER, SELFPAY ==
[2018-02-03] VITALS (19 sets, daily range): BP systolic 155–213; BP diastolic 68–88; PULSE 64–77; RESP 12–24; TEMP 36.9; O2SAT 96–100
--- NOTE | 2018-02-03 | DI.RAD.S_ITS ---
PROCEDURE: XR CHEST 1V INDICATIONS: stroke TECHNIQUE: One view of the chest was acquired. COMPARISON: [facility], CHEST 1 VIEW, 08/14/2016, 13:27. [facility], CHEST 1 VIEW, 10/27/2014, 10:14. [facility], CHEST 1 VIEW, 11/13/2014, 15:13. [facility], XR CHEST 1V, 12/12/2017, 14:56. FINDINGS: Surgical changes and devices: Sternotomy and cardiac valve prosthesis. Lungs and pleura: Diffuse interstitial infiltrates suspicious for mild pulmonary edema secondary to congestive heart failure. No pleural effusions or pneumothorax. Mediastinum: Mediastinal contours appear normal. Heart size is normal. Bones and chest wall: No suspicious bony lesions. Overlying soft tissues appear unremarkable. IMPRESSION: Suspect mild congestive heart failure. Dictated by: Hilaria Rosenberg M.D. on 02/03/2018 at 13:28 Approved by: Hilaria Rosenberg M.D. on 02/03/2018 at 13:30
--- NOTE | 2018-02-03 12:53 | DI.CT.S_ITS ---
PROCEDURE: CT HEAD/BRAIN WO CON INDICATIONS: stroke symptoms TECHNIQUE: Noncontrast 4.5 mm thick angled axial sections acquired from the foramen magnum to the vertex, with coronal and sagittal reformats. For radiation dose reduction, the following was used: automated exposure control, adjustment of mA and/or kV according to patient size. COMPARISON: [facility], CT, CT HEAD/BRAIN WO CON, 01/31/2018, 15:24. FINDINGS: Image quality: Excellent. CSF spaces: Basal cisterns are patent. No extra-axial fluid collections. The ventricles are symmetric in size and shape. Brain: No intracranial bleeds or masses. There is cerebral volume loss for age. There are mild periventricular and deep white matter chronic small vessel ischemic changes. There is intracranial internal carotid artery atherosclerosis. Skull and face: Calvarium and visualized facial bones appear intact, without suspicious lesions. Sinuses: Visualized sinuses and mastoids are clear. IMPRESSION: 1. No acute intracranial abnormalities. 2. Mild cerebral volume loss and chronic microvascular ischemic changes. The preliminary result was discussed with Dr. Palmer in ER on 02/03/2018 at 1302 hrs. Dictated by: Hilaria Rosenberg M.D. on 02/03/2018 at 13:07 Approved by: Hilaria Rosenberg M.D. on 02/03/2018 at 13:08
--- NOTE | 2018-02-03 12:58 | ED_ITS ---
HPI - Neuro Symptoms/Deficit General Chief Complaint: Neuro Symptoms/Deficit Stated Complaint: stroke Time Seen by Provider: 02/03/18 13:04 Source: EMS Mode of arrival: EMS Limitations: altered mental status History of Present Illness HPI Narrative: The patient developed a headache about 9:00 a.m. this morning. The headache was described as global. About 15 min prior to arrival the patient became disoriented home. He apparently could not move extremities. Upon arrival the patient seems quite distraught. He acknowledges my comments, and can obey commands including moving all extremities. He cannot respond verbally though. He was taken straight to CT after EMS arrival. After arriving back in his room he does have a response, but decreased motion peripherally. It is noted the underwent TVAR surgical procedure last month at [facility] in [place], [place]. He was seen here 2 days ago with TIA type symptoms, and transported back to [facility]. I have reviewed the notes from that visit. Work up was extensive. He underwent a brain MRI that showed no defects 2 days ago. There was no evidence of stroke. The patient has been suffering severe headaches since undergoing TAVR. There is no prior history of headaches or migraines. He also has diabetes, renal failure, and is the recipient of a kidney transplant. The patient eventually improved. He was able to give me a more comprehensive history himself. He has not felt ill. There is no suggestion of seizure activity from his when she was interviewed. After becoming oriented, he still complained of a severe headache. It is noted that his systolic pressure upon arrival was greater than 180, the hypertension persisted until intervention was provided. Related Data Home Medications Medication Instructions Recorded Confirmed acetaminophen 650 mg PO Q4-6H PRN 01/31/18 01/31/18 aspirin [Aspir-81] 81 mg PO DAILY 01/31/18 01/31/18 carvedilol 25 mg PO BID 01/31/18 01/31/18 clopidogrel [Plavix] 75 mg PO DAILY 01/31/18 01/31/18 glucagon (human recombinant) 1 mg IM Q20M PRN 01/31/18 01/31/18 insulin lispro 75 unit SUB-Q QAM 01/31/18 01/31/18 levothyroxine 137 mcg PO DAILY 01/31/18 01/31/18 lisinopril 5 mg PO BID 01/31/18 01/31/18 magnesium chloride 64 mg PO DAILY 01/31/18 01/31/18 mycophenolate sodium 180 mg PO BID 01/31/18 01/31/18 prednisone 5 mg PO DAILY 01/31/18 01/31/18 rosuvastatin 5 mg PO DAILY 01/31/18 01/31/18 tacrolimus 2 mg PO Q12H 01/31/18 01/31/18 Allergies Allergy/AdvReac Type Severity Reaction Status Date / Time Bnribkf-Pgw-Xmc Reductase Allergy Intermediate Cramping Verified 01/31/18 16:49 Inhibitor of the [[id number]-DCU-RDD REDUCTASE Muscles INHIBITOR] olmesartan Allergy Cramping Verified 01/31/18 16:50 of the Muscles Review of Systems Review of Systems All systems reviewed & are unremarkable except as noted in HPI and below Constitutional Denies chills, Denies daytime sleepiness, Denies difficulty sleeping, Denies fever(s) and Reports headache(s) Eyes Denies blurry vision and Denies loss of vision ENT Ears, Nose, Mouth, and Throat: Reports headache(s), Denies neck pain and Denies sore throat Cardiovascular Denies chest pain, Denies irregular heart rhythm, Denies lightheadedness, Denies palpitations, Denies dyspnea, Denies dyspnea on exertion and Denies orthopnea Respiratory Denies cough, Denies dyspnea, Denies dyspnea on exertion and Denies wheezing Gastrointestinal Gastrointestinal: Denies abdominal pain, Denies change in bowel habits, Denies diarrhea, Denies nausea and Denies vomiting Musculoskeletal Reports as per HPI, Denies myalgias, Denies arthralgias and Denies neck pain Integumentary/Breasts Denies pruritus, Denies erythema, Denies rash and Denies wounds Neurologic Reports headache(s) and Denies loss of vision Psychiatric Comments: Headache. Confusion. Bilateral decreased motor activity. Endocrine Denies palpitations Hematologic/Lymphatic Denies easy bleeding and Denies easy bruising Allergic/Immunologic Denies wheezing [facility] Medical History Bypass graft stenosis (Acute) COPD (chronic obstructive pulmonary disease) (Acute) Kidney failure (Acute) Acquired immunocompromised state (Chronic) Aortic stenosis (Chronic) Diabetes (Chronic) HTN (hypertension) (Chronic) Hyperlipidemia (Chronic) Hypothyroid (Chronic) Surgical History Heart valve replaced (Acute) Renal transplant recipient (Chronic) Social History Smoking Status: Never smoker Exam Initial Vital Signs Initial Vital Signs: Vital Signs Respiratory Rate 14 02/03/18 13:00 See RN notes please. Const General: acute distress and ill appearing Nutritional Appearance: average body habitus Orientation: awake and confused Limitations: altered mental status [facility] Head: normocephalic and atraumatic Ears: external ears normal and TM's normal bilaterally Nose: external nose normal and No nasal discharge Face and sinus: sinuses nontender, face symmetric, no sinus tenderness and No dry mucous membranes Mouth: oral mucosae normal and moist mucous membranes Teeth and gingiva: dentition normal Throat: tonsils normal and uvula midline Eyes General: appearance normal, both eyes and all related structures Eyelids: eyelids normal Conjunctivae: conjunctivae normal Sclera: sclerae normal Pupils: PERRL EOM: EOM intact bilaterally Neck Neck: normal visual inspection, trachea midline, No lymphadenopathy and No JVD Lymphatic: No lymphedema Chest Chest: normal inspection of the chest Resp Effort & Inspection: normal respiratory effort, able to speak in complete sentences, no respiratory distress and no use of accessory muscles Auscultation: clear to auscultation bilaterally, no rales, no rhonchi and no wheezes Cardio Rate: regular rate Rhythm: regular rhythm Heart Sounds: no click, no gallops, no murmurs and no rubs Pulses: normal peripheral pulses GI Inspection: non-distended Palpation: soft, no hepatosplenomegaly, No guarding, No pulsatile mass and No tender Auscultation: normal bowel sounds Skin General: no rashes or lesions noted, No jaundice and No petechiae Neuro General: alert, oriented x3, gait normal, no focal motor deficits and other ( The patient's neurologic exam varied. He initially was aphasic, but moved all extremities. He came in reportedly with bilateral paralysis. On the next exam he was mumbling words, but decreased motion equally, bilaterally. The symptoms resolved, he then had a NIHSS of 0.) Speech: speech normal Extrem General: full ROM, no clubbing, cyanosis or edema, no pedal edema and no calf tenderness Course Hospital Course: The patient's symptoms other than the headache resolved. His headache improved with pain management. However, management of the blood pressure appeared to significantly benefit his headache. His blood pressure was down in the 150s prior to discharge. He was up and ambulatory, back to baseline. He has developed these headaches since the aortic valve procedure. Elevated blood pressure may be contributing to the headaches. I have asked him to follow up with his own doctor and have his blood pressure closely monitored. He should return here as needed. Orders Ordered: ED Orders 02/03/18 12:40 Complete Blood Count AUTO DIFF Stat Comprehensive Metabolic Panel Stat Partial Thromboplastin Time Stat Prothrombin Time INR Stat 02/03/18 12:53 CT head/brain wo/w con Stat EKG-12 Lead Routine Discontinued Medications Dextrose (D50w) 12.5 gm IV NOW ONE Stop: 02/03/18 13:12 Last Admin: 02/03/18 13:14 Dose: 12.5 gm Hydralazine HCl (Apresoline) 10 mg IV NOW ONE Stop: 02/03/18 15:35 Last Admin: 02/03/18 15:48 Dose: 10 mg Labetalol HCl (Trandate) 20 mg IV NOW ONE Stop: 02/03/18 14:50 Last Admin: 02/03/18 14:56 Dose: 20 mg Tramadol HCl (Ultram) 100 mg PO NOW ONE Stop: 02/03/18 14:33 Last Admin: 02/03/18 14:56 Dose: 100 mg Vital Signs - 8 hr 02/03/18 13:00 02/03/18 13:05 02/03/18 13:19 Temperature 98.5 F Pulse Rate 73 77 Respiratory Rate 14 22 18 Blood Pressure 184/86 H Blood Pressure [Right Arm] 183/86 H Pulse Oximetry 100 99 02/03/18 14:05 02/03/18 14:32 02/03/18 14:56 Temperature Pulse Rate 67 66 65 Respiratory Rate 15 13 Blood Pressure 202/88 H Blood Pressure [Right Arm] 191/81 H 202/88 H Pulse Oximetry 100 98 02/03/18 15:05 02/03/18 15:21 02/03/18 15:32 Temperature Pulse Rate 64 65 67 Respiratory Rate 15 16 24 Blood Pressure Blood Pressure [Right Arm] 213/83 H 192/77 H 187/82 H Pulse Oximetry 99 97 98 02/03/18 15:44 02/03/18 15:48 02/03/18 16:05 Temperature Pulse Rate 65 67 68 Respiratory Rate 12 Blood Pressure 187/82 H 187/82 H Blood Pressure [Right Arm] 185/81 H Pulse Oximetry 98 02/03/18 16:10 02/03/18 16:15 02/03/18 16:45 Temperature Pulse Rate 69 68 70 Respiratory Rate 20 14 Blood Pressure 160/68 H Blood Pressure [Right Arm] 160/68 H 164/76 H Pulse Oximetry 97 96 02/03/18 17:02 02/03/18 17:21 02/03/18 17:36 Temperature Pulse Rate 72 75 73 Respiratory Rate 17 16 17 Blood Pressure Blood Pressure [Right Arm] 157/76 H 174/81 H 155/77 H Pulse Oximetry 99 97 100 02/03/18 18:02 Temperature Pulse Rate 72 Respiratory Rate 20 Blood Pressure Blood Pressure [Right Arm] 161/86 H Pulse Oximetry 100 MDM - Neuro Symptoms/Deficit Lab Data Result diagrams: 02/03/18 12:40 02/03/18 12:40 Lab Results 02/03/18 02/03/18 02/03/18 Range/Units 12:40 12:40 12:40 WBC 7.5 (4.5-11.0) X10^3/uL RBC 3.75 L (4.5-5.9) X10^6/uL Hgb 12.0 L (13.5-17.5) g/dL Hct 34.7 L (41-53) % MCV 92.4 (80-100) fL MCH 31.9 (26-34) PG MCHC 34.6 (30-36) % RDW 13.5 (11.6-14.8) % Plt Count 146 L (150-400) X10^3/uL Neut % (Auto) 50.3 (50-75) % Lymph % (Auto) 39.2 (25-40) % Tyrrell % (Auto) 8.7 (3-14) % Eos % (Auto) 1.2 L (2-4) % Baso % (Auto) 0.6 (0-2) % Neut # (Auto) 3800 (2575-4738) /uL PT 11.4 (10.1-12.7) SECONDS INR 1.1 (0.9-1.3) APTT 37 H D (26.4-36.2) SECONDS Sodium 137 (137-145) mmol/L Potassium 5.2 H (3.4-5.1) mmol/L Chloride 105 (98-107) mmol/L Carbon Dioxide 22 (22-32) mmol/L BUN 33 H (9-20) mg/dL Creatinine 1.60 H (0.66-1.25) mg/dL Estimated GFR 44.2 L (>60) mL/min BUN/Creatinine Ratio 20.6 (6-22) Glucose 78 L (80-110) mg/dL Calcium 9.9 (8.4-10.2) mg/dL Total Bilirubin 1.0 (0.2-1.3) mg/dL AST 28 (17-59) IU/L ALT 29 (21-72) IU/L Alkaline Phosphatase 50 (38-126) U/L Total Protein 7.5 (6.3-8.2) g/dL Albumin 4.1 (3.5-5.0) g/dL Globulin 3.4 (1.7-4.1) g/dL Albumin/Globulin Ratio 1.2 (1.0-2.8) Imaging Data CT scan - head: Radiologist's impression: No acute intracranial findings. ECG Data Attestation: I personally reviewed and interpreted this ECG as follows: ( normal sinus rhythm rate 77 bpm. Left atrial enlargement. Possible LVH. Old inferior [place], no acute findings however. No ectopy. Normal intervals.) Discharge Plan Departure Patient Disposition: Home, Self-Care Clinical Impression: Headache, Hypertension Discharge Date/Time: 02/03/18 18:07 Interventions: ED Discharge Assessment Last Done: 02/03/18 18:07 Instructions: High Blood Pressure Activity Restrictions/Additional Instructions: There is no evidence of stroke or TIA or evaluation. However your blood pressure was significantly elevated, the headache seemed to improve as the blood pressure improved. It is odd that she would develop these headaches since undergoing the aortic valve procedure. Follow up with your doctor regarding blood pressure management. Your blood pressure will require close monitoring and perhaps adjustment by your doctor. Return as needed for headaches, especially if your blood pressure is greater than 180. Return here for any each suggestion of altered mental status. Prescriptions: No Action glucagon (human recombinant) 1 mg Kit 1 mg IM Q20M PRN (Reason: Hypoglycemia) RF: 0 levothyroxine 137 mcg Tablet 137 mcg PO DAILY RF: 0 carvedilol 12.5 mg Tablet 25 mg PO BID RF: 0 prednisone 5 mg Tablet 5 mg PO DAILY RF: 0 clopidogrel [Plavix] 75 mg Tablet 75 mg PO DAILY RF: 0 aspirin [Aspir-81] 81 mg Tablet,Delayed Release (Dr/Ec) 81 mg PO DAILY RF: 0 lisinopril 10 mg Tablet 5 mg PO BID RF: 0 insulin lispro 100 unit/mL Solution 75 unit SUB-Q QAM RF: 0 tacrolimus 1 mg Capsule 2 mg PO Q12H RF: 0 rosuvastatin 5 mg Tablet 5 mg PO DAILY RF: 0 mycophenolate sodium 180 mg Tablet,Delayed Release (Dr/Ec) 180 mg PO BID RF: 0 magnesium chloride 64 mg Tablet,Delayed Release (Dr/Ec) 64 mg PO DAILY RF: 0 acetaminophen 325 mg Tablet 650 mg PO Q4-6H PRN (Reason: Fever Or Pain) RF: 0
[2018-02-03 13:13] LABS: Add Manual Diff / Slide Review NO; Basophils Percent Auto 0.6 % (0-2); Eosinophils Percent Auto 1.2 % (2-4); Hematocrit 34.7 % (41-53); Lymphocytes Percent Auto 39.2 % (25-40); Mean Corpuscular HGB Conc 34.6 % (30-36); Mean Corpuscular Hemoglobin 31.9 PG (26-34); Mean Corpuscular Volume 92.4 fL (80-100); Monocytes Percent Auto 8.7 % (3-14); Neutrophils Absolute Auto 3800 /uL (3000-5900); Neutrophils Percent Auto 50.3 % (50-75); Platelet Count 146 X10^3/uL (150-400); Red Blood Cell Count 3.75 X10^6/uL (4.5-5.9); Red Cell Distribution Width 13.5 % (11.6-14.8); White Blood Cell Count 7.5 X10^3/uL (4.5-11.0)
[2018-02-03] MEDS: DEXTROSE 50 % IN WATER 25 GM/50 ML SYRINGE IV (13:14)
[2018-02-03 13:19] LABS: Alanine Aminotransferase 29 IU/L (21-72); Albumin 4.1 g/dL (3.5-5.0); Albumin Globulin Ratio 1.2 (1.0-2.8); Alkaline Phosphatase 50 U/L (38-126); Aspartate Aminotransferase 28 IU/L (17-59); BUN Creatinine Ratio 20.6 (6-22); Blood Urea Nitrogen 33 mg/dL (9-20); Calcium 9.9 mg/dL (8.4-10.2); Carbon Dioxide 22 mmol/L (22-32); Chloride 105 mmol/L (98-107); Estimated Glomerular Filt Rate 44.2 mL/min (>60); Globulin 3.4 g/dL (1.7-4.1); Glucose 78 mg/dL (80-110); HEMOLYSIS 15 (0-50); Potassium 5.2 mmol/L (3.4-5.1); Sodium 137 mmol/L (137-145); Total Protein 7.5 g/dL (6.3-8.2)
[2018-02-03 13:21] LABS: INR 1.1 (0.9-1.3); Prothrombin Time 11.4 SECONDS (10.1-12.7)
[2018-02-03 13:24] LABS: PTT Partial Thromboplastin Tim 37 SECONDS (26.4-36.2)
[2018-02-03] MEDS: LABETALOL 20 MG/4 ML SYRINGE IV (14:56)
[2018-02-03] MEDS: TRAMADOL 50 MG TABLET 100 MG PO (14:56)
[2018-02-03] MEDS: HYDRALAZINE 20 MG/ML VIAL 10 MG IV (15:48)
--- NOTE | 2018-02-03 17:21 | PC.NURSE ---
Ambulation Trial went well. Walked a lap around the ER, pt said it is not his normal gait but he felt like he would be able to go home. Returning pulse was 75 and BP 174/81.
== END 2018-02-03 18:07 | disposition home or self-care (01) ==
PROVIDERS: Emergency Provider Emergency Medicine
DX: R51 Headache (principal); I10 Essential (primary) hypertension
CPT/HCPCS: 36415; 70470; 71045; 80053; 82962; 85025; 85610; 85730; 93005; 93041; 96374; 96375; 99285; 99291; J0360

== ENCOUNTER → 2018-02-05 07:38 | Outpatient (CLI) | payer OTHER, SELFPAY ==
[2018-02-05 07:56] LABS: RBC Urine None Seen (0-5/HPF)
[2018-02-05 08:20] LABS: Appearance Urine UA CLEAR; Bilirubin Urine UA NEGATIVE (NEGATIVE); Color Urine UA YELLOW; Glucose Urine UA 1+ g/dL (Normal); Ketones Urine UA TRACE (NEGATIVE); Leukocyte Esterase Urine UA TRACE (NEGATIVE); Nitrite Urine UA Negative (Negative); Occult Blood Urine UA NEGATIVE (Negative); Protein Urine UA NEGATIVE (Negative); Urobilinogen Urine UA 0.2 E.U./dL (0.2)
[2018-02-05 08:27] LABS: Bacteria Urine Many (>30); Culture Indicated Urine Specimen Cultured; WBC Urine 10-30/HPF (0-5/HPF)
[2018-02-05 08:59] LABS: Protein (Total) Urine Random 11 mg/dL (0-12); Protein Creatinine Ratio Urine 0.08 GRAM/24H
[2018-02-05 09:05] LABS: Add Manual Diff / Slide Review NO; Basophils Percent Auto 0.7 % (0-2); Eosinophils Percent Auto 0.9 % (2-4); Hematocrit 36.2 % (41-53); Hemoglobin 12.1 g/dL (13.5-17.5); Lymphocytes Percent Auto 39.4 % (25-40); Mean Corpuscular HGB Conc 33.4 % (30-36); Mean Corpuscular Hemoglobin 31.9 PG (26-34); Mean Corpuscular Volume 95.5 fL (80-100); Neutrophils Absolute Auto 2700 /uL (3000-5900); Platelet Count 139 X10^3/uL (150-400); Red Blood Cell Count 3.79 X10^6/uL (4.5-5.9); Red Cell Distribution Width 13.3 % (11.6-14.8); White Blood Cell Count 5.4 X10^3/uL (4.5-11.0)
[2018-02-05 09:37] LABS: Hemoglobin A1C% w Est Avg Glu 6.4 % (4.0-6.0)
[2018-02-05 09:50] LABS: Alanine Aminotransferase 20 IU/L (21-72); Albumin Globulin Ratio 1.2 (1.0-2.8); Alkaline Phosphatase 49 U/L (38-126); Aspartate Aminotransferase 18 IU/L (17-59); Bilirubin Total 0.9 mg/dL (0.2-1.3); Blood Urea Nitrogen 40 mg/dL (9-20); Calcium 9.9 mg/dL (8.4-10.2); Carbon Dioxide 25 mmol/L (22-32); Chloride 103 mmol/L (98-107); Cholesterol 165 mg/dL (140-199); Estimated Glomerular Filt Rate 32.3 mL/min (>60); Globulin 3.3 g/dL (1.7-4.1); Glucose 168 mg/dL (80-110); HDL Cholesterol 49 mg/dL (40-60); HEMOLYSIS < 15 (0-50); LDL Cholesterol Calculated 84 mg/dL (<100); Magnesium 1.6 mg/dL (1.6-2.3); Phosphorous 4.9 mg/dL (2.3-3.7); Potassium 4.7 mmol/L (3.4-5.1); Sodium 138 mmol/L (137-145); Total Protein 7.3 g/dL (6.3-8.2); Triglycerides 158 mg/dL (35-150)
[2018-02-05 09:59] LABS: Free T4, Direct Thyroxine 1.26 ng/dL (0.78-2.19)
[2018-02-05 10:13] LABS: Thyroid Stimulating Hormone 1.58 uIU/mL (0.47-4.68)
[2018-02-06 14:35] LABS: Parathyroid Hormone Int 34 pg/mL (14-64)
[2018-02-07 12:10] LABS: Tacrolimus 12.1 mcg/L (5.0-20.0)
== END ==
PROVIDERS: Referring Provider Specialist; Visit Provider Internal Medicine Interventional Cardiology
DX: Z94.0 Kidney transplant status (principal); E78.2 Mixed hyperlipidemia; E10.29 Type 1 diabetes mellitus with other diabetic kidney complication; Z41.8 Encounter for other procedures for purposes other than remedying health state; N25.81 Secondary hyperparathyroidism of renal origin; I35.0 Nonrheumatic aortic (valve) stenosis
CPT/HCPCS: 36415; 80053; 80061; 80197; 81001; 82570; 83036; 83735; 83970; 84100; 84156; 84439; 84443; 85025; 87086

== ENCOUNTER → 2018-02-15 07:12 | Outpatient (CLI) | payer OTHER, SELFPAY ==
[2018-02-15 07:29] LABS: RBC Urine None Seen (0-5/HPF)
[2018-02-15 08:30] LABS: Appearance Urine UA CLEAR; Bilirubin Urine UA NEGATIVE (NEGATIVE); Color Urine UA YELLOW; Glucose Urine UA TRACE g/dL (Normal); Ketones Urine UA NEGATIVE (NEGATIVE); Leukocyte Esterase Urine UA NEGATIVE (NEGATIVE); Nitrite Urine UA Negative (Negative); Occult Blood Urine UA NEGATIVE (Negative); Protein Urine UA NEGATIVE (Negative); Specific Gravity Urine UA 1.015 (1.000-1.035); Urobilinogen Urine UA 0.2 E.U./dL (0.2)
[2018-02-15 08:43] LABS: WBC Urine 1-5/HPF (0-5/HPF)
[2018-02-15 08:44] LABS: Bacteria Urine Occasional (0-1)
[2018-02-15 08:46] LABS: Hemoglobin A1C% w Est Avg Glu 6.6 % (4.0-6.0)
[2018-02-15 08:49] LABS: Add Manual Diff / Slide Review NO; Basophils Percent Auto 0.8 % (0-2); Eosinophils Percent Auto 1.4 % (2-4); Hematocrit 34.3 % (41-53); Hemoglobin 11.7 g/dL (13.5-17.5); Lymphocytes Percent Auto 46.7 % (25-40); Mean Corpuscular HGB Conc 34.2 % (30-36); Mean Corpuscular Hemoglobin 32.4 PG (26-34); Mean Corpuscular Volume 94.6 fL (80-100); Monocytes Percent Auto 9.3 % (3-14); Neutrophils Absolute Auto 2400 /uL (3000-5900); Neutrophils Percent Auto 41.8 % (50-75); Platelet Count 144 X10^3/uL (150-400); Red Blood Cell Count 3.62 X10^6/uL (4.5-5.9); Red Cell Distribution Width 13.3 % (11.6-14.8); White Blood Cell Count 5.7 X10^3/uL (4.5-11.0)
[2018-02-15 09:14] LABS: Alanine Aminotransferase 28 IU/L (21-72); Albumin Globulin Ratio 1.3 (1.0-2.8); Alkaline Phosphatase 45 U/L (38-126); Aspartate Aminotransferase 23 IU/L (17-59); BUN Creatinine Ratio 20.6 (6-22); Bilirubin Total 0.8 mg/dL (0.2-1.3); Blood Urea Nitrogen 37 mg/dL (9-20); Calcium 9.8 mg/dL (8.4-10.2); Carbon Dioxide 23 mmol/L (22-32); Chloride 106 mmol/L (98-107); Cholesterol 153 mg/dL (140-199); Estimated Glomerular Filt Rate 38.6 mL/min (>60); Globulin 3.1 g/dL (1.7-4.1); Glucose 135 mg/dL (80-110); HDL Cholesterol 63 mg/dL (40-60); HEMOLYSIS < 15 (0-50); LDL Cholesterol Calculated 73 mg/dL (<100); Magnesium 1.7 mg/dL (1.6-2.3); Phosphorous 4.9 mg/dL (2.3-3.7); Sodium 139 mmol/L (137-145); Total Protein 7.1 g/dL (6.3-8.2); Triglycerides 83 mg/dL (35-150)
[2018-02-15 09:17] LABS: Potassium 5.4 mmol/L (3.4-5.1)
[2018-02-15 09:22] LABS: Free T4, Direct Thyroxine 1.56 ng/dL (0.78-2.19)
[2018-02-15 09:36] LABS: Thyroid Stimulating Hormone 0.23 uIU/mL (0.47-4.68)
[2018-02-15 09:40] LABS: Creatinine Urine Random 67.1 mg/dL; Protein (Total) Urine Random 11 mg/dL (0-12); Protein Creatinine Ratio Urine 0.16 GRAM/24H
[2018-02-17 14:57] LABS: Parathyroid Hormone Int 49 pg/mL (14-64)
[2018-02-18 00:44] LABS: Tacrolimus 7.8 mcg/L (5.0-20.0)
== END ==
PROVIDERS: Visit Provider Specialist
DX: Z94.0 Kidney transplant status (principal); Z41.8 Encounter for other procedures for purposes other than remedying health state; E78.2 Mixed hyperlipidemia; N25.81 Secondary hyperparathyroidism of renal origin; E10.29 Type 1 diabetes mellitus with other diabetic kidney complication
CPT/HCPCS: 36415; 80053; 80061; 80197; 81001; 82570; 83036; 83735; 83970; 84100; 84156; 84439; 84443; 85025

== ENCOUNTER → 2018-03-02 08:32 | Outpatient (CLI) | payer OTHER, SELFPAY ==
[2018-03-02 11:10] LABS: BUN Creatinine Ratio 20.6 (6-22); Blood Urea Nitrogen 33 mg/dL (9-20); Calcium 9.7 mg/dL (8.4-10.2); Carbon Dioxide 20 mmol/L (22-32); Chloride 107 mmol/L (98-107); Estimated Glomerular Filt Rate 44.2 mL/min (>60); Glucose 151 mg/dL (80-110); HEMOLYSIS < 15 (0-50); Sodium 137 mmol/L (137-145)
[2018-03-02 11:12] LABS: Potassium 5.5 mmol/L (3.4-5.1)
== END ==
PROVIDERS: Visit Provider Specialist
DX: Z94.0 Kidney transplant status (principal)
CPT/HCPCS: 36415; 80048; 80197

== ENCOUNTER 2018-03-04 10:00 | Outpatient (RCR) | payer OTHER, SELFPAY ==
[2018-02-16 08:36] VITALS: BP 148/82; RESP 18; O2SAT 98; BMI 20.8
--- NOTE | 2018-02-16 13:16 | CR.IEVALNOTE ---
CR Initial Assessment Report DX: TAVR, RENAL TRANSPLANT 2013, CABG x2 2011, COPD, TYPE-1 DIABETIC, PVD, BPH, HYPOTHYROIDISM, HYPERPERATHYROIDISM CR Cardiac Rehab Initial Assessment Start: 02/16/18 08:35 Freq: Status: Active Protocol: Document 02/16/18 08:36 [facility] (Rec: 02/16/18 09:44 [facility] [id number]) Cardiac Rehabilitation Exercise Risk Risk High % 50% EF Comment: HX:CABG;TYPE I DM;HTN;RENAL TRANSPLANT. RETINOPATHY AICD No Pacemaker No Heart Rhythm NSR Right Arm Blood Pressure (90/60-120/80 mmHg) 148/82 H Blood Pressure Method Manual Cuff/Auscultation BP Comment: FISTULA IN L ARM -NO B/P THERE Apical Resting Heart Rate: 74 Target Heart Rate: 90 Strength: Normal Pulse Rhythm: Regular Respiratory Rate (12-24 breaths/min) 18 Respiratory Effort Non-Labored Pulse Oximetry (91-100 %) 98 Cardiac Rehabilitation Nutrition Evaluation Recent Lipid Blood Test Yes Date Blood Test Drawn 02/15/18 Total Cholesterol 153 Triglycerides 83 HDL 63 LDL 73 Lipid Medications Yes Goal for Lipids @GOAL Lipids Comment ROSUVASTATIN 5MG History of Diabetes Yes Type Type 1 Monitors Blood Glucose Yes Frequency CONTINUOUS GM. ALSO HAS AN INSULIN PUMP Diet Controlled Yes On Insulin Yes Date/Result of HgA1C 02/16/2016 6.6 Goals FBS 80-110 HgA1C <5.6 Cardiac Rehabilitation Weight Management Plan Height 185.42 cm Weight 71.668 kg Body Mass Index (BMI) 20.8 Girth Measurement (in inches) (cm) 31.5 Comment GAIN 10# Vitamins & Supplements Yes Use Daily Nutrition Evaluation Referral to Diabetes Education No Nurse/Patient Discussion Yes Patient Following Diet Plan Yes Diet Mediterranean Education Primary Language KOREAN Telephone Installer Required No Hearing Ability Normal Visual Impairment Partially Limited Other Visual Impairment RETINOPATHY Education on Intake Chest Pain Short of Breath Headache Lightheaded or Dizzy Musculoskeletal Pain General Malaise Tobacco Use N/A Hx Hypertension Yes Goal SINCE TAVR B/P HAS INCREASED. ON LISINOPRIL Goal of BP <130/80 Yes Medications Reconciled Yes CR Psychosocial Evaluation Goal STATES IS NOT DEPRESSED, BUT HAS BEEN THROUGH SO MUCH WITH RENAL TRANSPLANT, TAVR, HEADACHES, STROKE LIKE SX THIS PAST WEEK. HE HAS NOT BEEN ABLE TO EVEN WALK MUCH. GOAL WILL BE TO GRADUALLY GET HIM BACK WALKING AND EXERCISING. Identifies Stressors HIS HEADACHES AND STROKE SX. HIS NEPHOLOGIST HAS ATTRIBUTED IT TO HIS TACROLIMUS AND HAS DECREASED THE DOSE. Psych Consult No Discussion with Patient Yes Psychotropic Medications No HQ Scoring Scale 10-14 = Severe Comment STATES IS NOT DEPRESSED AT THIS TIME JUST TIRED AND SOMETIMES CANT SLEEP Situation LIVES AT HOME WITH . SON IN [place] WHO VISTS. Employment Status Self-Employed Ready for Change Number +37 CR Psychosocial Eval Continued Sternotomy Incision N/A Heart Murmur SLIGHT MURMUR LSB Stress Management Class Yes Heart Disease & Emotion Film Yes Readiness Cooperative Motivated Patient's Story SEVERE SYMPTOMATIC AORTIC STENOSIS GETTING WORSE. CORONARY BYPASS GRAFTS ARE CLEAN. Treatment Prescribed for Individual Yes Needs No Treatment Change Yes: Please Continue with Cardiopulmonary Rehabilitation as Ordered Date 02/16/18 Document 02/16/18 10:16 AA (Rec: 02/16/18 10:24 AA [id number]) Cardiac Rehabilitation Exercise Fall Risk History of Falling (Immediate or Yes Previous) Secondary Diagnosis (More Than 2 Medical Yes Diagnoses) Ambulatory Aid None/bed rest/nurse assist IV/Heparin Lock No Mental Status Oriented to own ability Comment Implement Fall Risk precautions. Physio ball with saucer next to rail, progress as tolerated. Assistive Devices None Park Activity Status Index 8.18 Home Exercise No Symptoms: Difficulty Walking Muscle Cramps Muscle Weakness Radiating Pain into Limb Body Alignment Posture Good Posture Ambulation Assistive Device None Orthotic/Prosthetic Devices or Brace: No Comment Lower limb pain with incline Exercise Treadmill Results 12 min METS 4.29 Angina with Exercise no Exercise Tolerance Good Additional Comment Tolerates speed well, incline increases lower limb pain. Pt tolerated 4.0 incline for 15 seconds CR Exercises Prescription Exercise Duration (minutes) 20 METs (resistance level) 3 Frequency 2x/wk RPE 11-14 Exercise Duration (minutes) 20 METs (resistance level) 5 Frequency 2x/wk RPE 11-14 Comment increase incline as tolerated w/ leg pain Band Resistance 3 Number of Reps 12 Number of Sets 1 Exercise Tolerance Good Frequency 1x/wk RPE 11-15 Comment increase as tolerated CR Psychosocial Evaluation Goal Increase stamina and endurance and decrease pain with walking inclines in CR in 6-8 weeks. Identifies Stressors To increase strenght and stamina to be able to walk trails with inclines and do yard work and work on roof of house, with CR in 12 weeks. Document 02/16/18 13:13 AA (Rec: 02/16/18 13:13 HUMA [id number]) CR Pre Exercise Evaluation Orientation Self Pulse Check DEANNA PRE Scale Exercise Safety Equipment Orientation Warm Up/Cool Down
--- NOTE | 2018-03-03 15:59 | CR.EDUC ---
CR Education Report CR Education Start: 02/16/18 08:35 Freq: Status: Active Protocol: Document 02/17/18 15:46 JCP (Rec: 02/17/18 15:47 JCP [id number]) CR Education Education ANTI INFLAMMATORY FOODS AND MEDITATION Education FIRST FULL DAY IN CR. TOLERATED 2 MACHINES WELL. ABLE TO EXERCISE A FULL 40 MINUTES Document 02/24/18 12:07 JCP (Rec: 02/24/18 12:07 JCP [id number]) CR Education Education MET WITH JAMAR CHRIS RD Document 02/25/18 10:41 ANIL (Rec: 02/25/18 10:41 ANIL [id number]) CR Education Education pt intro and hx review Document 03/03/18 15:59 JCP (Rec: 03/03/18 15:59 JCP [id number]) CR Education Education MET WITH LIAM ULRICH ON METS
--- NOTE | 2018-03-04 10:28 | CR.EDUC ---
CRYSTAL VANEGAS CR Education Report CR Education Start: 02/16/18 08:35 Freq: Status: Active Protocol: Document 02/17/18 15:46 JCP (Rec: 02/17/18 15:47 JCP [id number]) CR Education Education ANTI INFLAMMATORY FOODS AND MEDITATION Education FIRST FULL DAY IN CR. TOLERATED 2 MACHINES WELL. ABLE TO EXERCISE A FULL 40 MINUTES Document 02/24/18 12:07 JCP (Rec: 02/24/18 12:07 JCP [id number]) CR Education Education MET WITH JAMAR CHRIS RD Document 02/25/18 10:41 ANIL (Rec: 02/25/18 10:41 ANIL [id number]) CR Education Education pt intro and hx review Document 03/03/18 15:59 JCP (Rec: 03/03/18 15:59 JCP [id number]) CR Education Education MET WITH LIAM ULRICH ON METS
== END 2018-03-26 14:44 ==
LOC: CAR 10:00
PROVIDERS: Visit Provider Internal Medicine Interventional Cardiology
DX: I35.0 Nonrheumatic aortic (valve) stenosis (principal)
CPT/HCPCS: 93798